=== PATIENT | female | born 1965 | race Two or more races ===

== ENCOUNTER 2018-01-26 10:08 | Emergency (ER) | payer OTHER ==
[~2018-01-26] VITALS: Ht 154.9 cm; Wt 82.6 kg
[~2018-01-26 10:08] MED LIST: CYMBALTA30 MG; DOLOGEN CAPLET1 TAB PO
[2018-01-26] MEDS ORDERED: CYMBALTA60 MG (10:53)
[2018-01-26] MEDS ORDERED: PROMETHAZINE W118 ML PO (14:37)
[2018-01-26] MEDS ORDERED: TESSALON PERLE100 M1 PO (14:37)
[2018-01-26] MEDS ORDERED: ZITHROMAX500 MG PO (14:54)
== END 2018-01-26 17:01 | disposition home or self-care (01) ==
LOC: ER 10:08
DX: J06.9 Acute upper respiratory infection, unspecified (principal)

== ENCOUNTER 2018-04-22 11:46 | Inpatient (IN) | payer OTHER ==
[~2018-04-22] VITALS: Ht 154.9 cm; Wt 180.0 kg
[~2018-04-22 11:46] MED LIST changes: +CYMBALTA60 MG; +PROMETHAZINE W118 ML PO; +TESSALON PERLE100 M1 PO; +ZITHROMAX500 MG PO
== END 2018-04-24 12:07 | disposition home or self-care (01) | DRG 72 ==
LOC: ER 11:46 → SEC-K 20:02 → MEDI 20:02
PROC: BW28ZZZ Computerized Tomography (CT Scan) of Head (ICD-10-PCS; principal; 2018-04-22)
PROC: B246ZZZ Ultrasonography of Right and Left Heart (ICD-10-PCS; 2018-04-22)
PROC: B345ZZZ Ultrasonography of Bilateral Common Carotid Arteries (ICD-10-PCS; 2018-04-22)
PROC: B348ZZZ Ultrasonography of Bilateral Internal Carotid Arteries (ICD-10-PCS; 2018-04-22)
PROC: B030ZZZ Magnetic Resonance Imaging (MRI) of Brain (ICD-10-PCS; 2018-04-22)
PROC: 4A12X4Z Monitoring of Cardiac Electrical Activity, External Approach (ICD-10-PCS; 2018-04-22)
DX: G45.4 Transient global amnesia (principal); M79.7 Fibromyalgia; F41.8 Other specified anxiety disorders
CPT/HCPCS: 70551

== ENCOUNTER 2018-09-06 07:42 | Emergency (ER) | payer OTHER ==
[~2018-09-06] VITALS: Ht 154.9 cm; Wt 82.6 kg
== END 2018-09-06 10:25 | disposition home or self-care (01) ==
LOC: ER 07:42
DX: R07.89 Other chest pain (principal); R30.0 Dysuria

== ENCOUNTER 2019-02-06 09:08 | Emergency (ER) | payer OTHER ==
[~2019-02-06] VITALS: Ht 154.9 cm; Wt 86.2 kg
== END 2019-02-06 11:57 | disposition home or self-care (01) ==
LOC: ER 09:08
DX: K52.9 Noninfective gastroenteritis and colitis, unspecified (principal)

== ENCOUNTER 2019-02-23 04:17 | Emergency (ER) | payer OTHER ==
[~2019-02-23] VITALS: Ht 157.5 cm; Wt 86.6 kg
[2019-02-23] MEDS ORDERED: TESSALON PERLE100 M1 PO (14:39)
[2019-02-23] MEDS ORDERED: PROMETH-CODEIN 65 ML PO (14:39)
== END 2019-02-23 14:53 | disposition home or self-care (01) ==
LOC: ER 04:17
DX: J40 Bronchitis, not specified as acute or chronic (principal)

== ENCOUNTER 2019-09-15 18:01 | Emergency (ER) | payer OTHER ==
[~2019-09-15] VITALS: Ht 154.9 cm; Wt 87.5 kg
[~2019-09-15 18:01] MED LIST changes: +PROMETH-CODEIN 65 ML PO
[2019-09-15] MEDS ORDERED: BUDEO.25 (18:32)
== END 2019-09-15 22:21 | disposition home or self-care (01) ==
LOC: ER 18:01
DX: B33.8 Other specified viral diseases (principal); B96.0 Mycoplasma pneumoniae [M. pneumoniae] as the cause of diseases classified elsewhere

== ENCOUNTER → 2019-10-08 | Emergency (ER) | payer OTHER ==
[~2019-10-08] VITALS: Ht 154.9 cm; Wt 88.0 kg
[~2019-10-08] MED LIST changes: +BUDEO.25
== END | disposition home or self-care (01) ==
LOC: ER 07:33
DX: Q63.2 Ectopic kidney (principal); R31.0 Gross hematuria